=== PATIENT | male | born 1935 | race Hispanic/Latino ===

== ENCOUNTER 2018-01-04 22:39 | Emergency (ER) | payer MEDICARE ==
[~2018-01-04 22:39] MED LIST: ALIS150T PO; AMAN100C12 PO; Aspirin PO; CA C1TAB73 PO; CARB-38 PO; DOCU240C25 PO; DONE5TAB33 PO; FLUO40CA49 PO; FOLI0.8T21 PO; ISOS30TA PO; METO-391 PO; PANT40TA25 PO; PRAM0.5T12 PO; RISP0.5T50 PO; SIMV20TA6 PO
[2018-01-04 23:33] LABS: BASOPHILS % (AUTO) 0.6 % (0.0-5.0); EOSINOPHILS % (AUTO) 2.5 % (0.0-8.0); HEMATOCRIT 33.3 % (42-54); LYMPHOCYTES % (AUTO) 19.1 % (21.0-51.0); MEAN CORPUSCULAR HEMOGLOBIN 33.3 pg (27.0-33.0); MEAN CORPUSCULAR HGB CONC 33.8 g/dL (32.0-36.0); MEAN CORPUSCULAR VOLUME 98.5 fL (79-99); MONOCYTES % (AUTO) 10.5 % (3.0-13.0); NEUTROPHILS % (AUTO) 67.3 % (40.0-77.0); PLATELET COUNT (AUTO) 114 K/uL (130-400); RED BLOOD CELL COUNT(AUTO) 3.38 MIL/uL (4.50-6.20); RED CELL DISTRIBUTION WIDTH 13.9 % (11.0-15.5); WHITE BLOOD COUNT (AUTO) 5.6 K/uL (4.8-10.8)
[2018-01-04 23:40] LABS: CREATININE 1.4 mg/dL (0.5-1.5)
== END 2018-01-05 00:55 | disposition home or self-care (01) ==
LOC: EDH 22:39
DX: G20 Parkinson's disease (principal); I10 Essential (primary) hypertension; Z88.5 Allergy status to narcotic agent
CPT/HCPCS: 36415; 70450; 80048; 85025; 93005

== ENCOUNTER 2018-08-27 11:05 | Observation (INO) | payer MEDICARE ==
[~2018-08-27 11:05] MED LIST changes: -ALIS150T PO; -Aspirin PO; -CA C1TAB73 PO; -FOLI0.8T21 PO; -ISOS30TA PO; +LEVE250T2 PO; -PANT40TA25 PO; +TAMS0.4C32 PO
[2018-08-27 11:39] LABS: BASOPHILS % (AUTO) 0.4 % (0.0-5.0); EOSINOPHILS % (AUTO) 2.2 % (0.0-8.0); HEMATOCRIT 31.9 % (42-54); LYMPHOCYTES % (AUTO) 16.8 % (21.0-51.0); MEAN CORPUSCULAR HEMOGLOBIN 33.5 pg (27.0-33.0); MEAN CORPUSCULAR HGB CONC 34.4 g/dL (32.0-36.0); MEAN CORPUSCULAR VOLUME 97.4 fL (79-99); NEUTROPHILS % (AUTO) 68.6 % (40.0-77.0); NUCLEATED RED BLOOD CELLS 0.1 % (0.0-0.19); PLATELET COUNT (AUTO) 105 K/uL (130-400); RED BLOOD CELL COUNT(AUTO) 3.27 MIL/uL (4.50-6.20); RED CELL DISTRIBUTION WIDTH 13.9 % (11.0-15.5); WHITE BLOOD COUNT (AUTO) 3.9 K/uL (4.8-10.8)
[2018-08-27 11:51] LABS: CREATININE 1.2 mg/dL (0.5-1.5); POTASSIUM 3.6 mmol/L (3.5-5.1)
[2018-08-27 11:55] LABS: BILIRUBIN,TOTAL 0.4 mg/dL (0.2-1.0); MAGNESIUM 1.7 mg/dL (1.80-2.40); TOTAL PROTEIN, SERUM 6.2 g/dL (6.0-8.3)
[2018-08-27] MEDS ORDERED: MAGNESIUM OXIDE 400 MG TABLET PO ONE (13:25)
[2018-08-27 14:11] LABS: APPEARANCE,URINE Clear (CLEAR); BILIRUBIN,URINE Negative (NEGATIVE); COLOR,URINE Yellow (YELLOW); GLUCOSE, URINE (UA) Negative (NEGATIVE); KETONES,URINE Trace mg/dL (NEGATIVE); LEUKOCYTE ESTERASE ,URINE Negative (NEGATIVE); NITRATE,URINE Negative (NEGATIVE); OCCULT BLOOD,URINE Negative (NEGATIVE); PH,URINE 7.5 (5.0-8.0); PROTEIN,URINE Negative (NEGATIVE); UROBILINOGEN,URINE 0.2 mg/dL (0.2-1.0)
[2018-08-27 14:24] LABS: BACTERIA,URINE None Seen /HPF (None Seen); RBC,URINE 0-1 /HPF (0-1); WBC,URINE None Seen /HPF (0-1)
[2018-08-27 14:25] LABS: SQUAMOUS EPITHELIAL CELL,UR 0-2 /HPF (0-2)
[2018-08-27 15:45] VITALS: BP 174/78
[2018-08-27] MEDS ORDERED: DOCUSATE CALCIUM 240 MG CAP PO PRN (16:15)
--- NOTE | 2018-08-27 16:44 | NUR ---
lives with spouse and daughter Addendum: 08/27/18 at 1653 by MARIAELENA MIXON RN RN Amended: Links added.
[2018-08-27] MEDS ORDERED: LISINOPRIL 10 MG TABLET PO SCH (17:00)
[2018-08-27] MEDS ORDERED: CEPH500T PO (17:03)
[2018-08-27] MEDS ORDERED: METO25TA6 PO (17:03)
[2018-08-27] MEDS ORDERED: RISP1TAB71 PO (17:03)
[2018-08-27 19:16] VITALS: BP 142/74
[2018-08-27] MEDS: RISPERIDONE 0.5 MG TABLET PO SCH (20:35)
[2018-08-27] MEDS ORDERED: LEVETIRACETAM 250 MG TABLET PO SCH (21:00)
[2018-08-27] MEDS ORDERED: DONEPEZIL HCL 5 MG TAB PO SCH (21:00)
[2018-08-27] MEDS ORDERED: SIMVASTATIN 20 MG TABLET PO SCH (21:00)
[2018-08-27 23:35] VITALS: BP 141/70
[2018-08-28 03:56] LABS: HEMATOCRIT 29.2 % (42-54); MEAN CORPUSCULAR HEMOGLOBIN 33.4 pg (27.0-33.0); MEAN CORPUSCULAR HGB CONC 34.5 g/dL (32.0-36.0); MEAN CORPUSCULAR VOLUME 96.7 fL (79-99); PLATELET COUNT (AUTO) 111 K/uL (130-400); RED BLOOD CELL COUNT(AUTO) 3.02 MIL/uL (4.50-6.20); RED CELL DISTRIBUTION WIDTH 13.7 % (11.0-15.5); WHITE BLOOD COUNT (AUTO) 4.9 K/uL (4.8-10.8)
[2018-08-28 04:00] LABS: CREATININE 1.2 mg/dL (0.5-1.5); MAGNESIUM 1.6 mg/dL (1.80-2.40); POTASSIUM 3.5 mmol/L (3.5-5.1)
[2018-08-28 04:09] VITALS: BP 160/76
[2018-08-28 07:48] VITALS: BP 158/66
[2018-08-28] MEDS ORDERED: AMANTADINE HCL 100 MG CAPSULE PO SCH (08:00)
[2018-08-28] MEDS: RISPERIDONE 0.5 MG TABLET PO SCH ×2 (08:09→14:57)
[2018-08-28] MEDS ORDERED: TAMSULOSIN HCL 0.4 MG CAP.ER.24H PO SCH (09:00)
[2018-08-28] MEDS ORDERED: LISINOPRIL 10 MG TABLET PO SCH (09:00)
[2018-08-28] MEDS ORDERED: FLUOXETINE HCL 20 MG CAPSULE PO SCH (09:00)
[2018-08-28 11:48] VITALS: BP 160/79
[2018-08-28] MEDS ORDERED: PRAMIPEXOLE DI-HCL 0.25 MG TABLET PO SCH (12:00)
[2018-08-28] MEDS ORDERED: LISI-662 PO (13:11)
--- NOTE | 2018-08-28 14:55 | NUR ---
patient received flu vaccine earlier this year in May Addendum: 08/28/18 at 1456 by MARIAELENA MIXON RN RN Amended: Links added.
--- NOTE | 2018-08-28 15:43 | NUR ---
Patient discharged home with family members. Prescription for Lisinopril printed and given to family. Copy placed in chart. IV removed.
[2018-08-28] MEDS ORDERED: CARBIDOPA-LEVODOPA 25-100 TAB PO SCH (19:00)
[2018-08-29] MEDS ORDERED: LISINOPRIL 20 MG TABLET PO SCH (09:00)
== END 2018-08-28 15:50 | disposition home or self-care (01) ==
LOC: EDH 11:05 → EDHIP 13:43 → 2DH 15:28
PROVIDERS: ADMIT Internal Medicine Nephrology; ATTEND Internal Medicine Nephrology
DX: I49.8 Other specified cardiac arrhythmias (principal); G20 Parkinson's disease; I25.10 Atherosclerotic heart disease of native coronary artery without angina pectoris; I10 Essential (primary) hypertension; I95.9 Hypotension, unspecified; Z95.1 Presence of aortocoronary bypass graft
CPT/HCPCS: 36415 ×2; 70450; 80048; 80053; 81001; 82150; 82550; 83690; 83735 ×2; 84484; 85025; 85027; 93005; 99291; A4600; G0378 ×26

== ENCOUNTER 2018-08-30 22:52 | Emergency (ER) | payer MEDICARE ==
[~2018-08-30 22:52] MED LIST changes: +CEPH500T PO; +LISI-662 PO; -METO-391 PO; +RISP1TAB71 PO
[2018-08-31 00:08] LABS: BASOPHILS % (AUTO) 0.2 % (0.0-5.0); EOSINOPHILS % (AUTO) 1.3 % (0.0-8.0); LYMPHOCYTES % (AUTO) 12.2 % (21.0-51.0); MEAN CORPUSCULAR HEMOGLOBIN 33.6 pg (27.0-33.0); MEAN CORPUSCULAR HGB CONC 34.3 g/dL (32.0-36.0); MEAN CORPUSCULAR VOLUME 97.8 fL (79-99); MONOCYTES % (AUTO) 9.4 % (3.0-13.0); NEUTROPHILS % (AUTO) 76.9 % (40.0-77.0); PLATELET COUNT (AUTO) 121 K/uL (130-400); RED BLOOD CELL COUNT(AUTO) 3.27 MIL/uL (4.50-6.20); RED CELL DISTRIBUTION WIDTH 14.1 % (11.0-15.5); WHITE BLOOD COUNT (AUTO) 5.9 K/uL (4.8-10.8)
[2018-08-31 00:18] LABS: CREATININE 1.3 mg/dL (0.5-1.5); POTASSIUM 3.7 mmol/L (3.5-5.1)
[2018-08-31 00:20] LABS: INR 1.06 (0.85-1.15); PARTIAL THROMBOPLASTIN TIME 29.2 SEC (26.3-35.5); PROTHROMBIN TIME 11.1 SEC (9.6-11.6)
[2018-08-31 00:21] LABS: B-TYPE NATRIURETIC PEPTIDE 111 pg/mL (0-100)
[2018-08-31 00:22] LABS: ALBUMIN 3.1 g/dL (3.5-5.0); BILIRUBIN,TOTAL 0.3 mg/dL (0.2-1.0); TOTAL PROTEIN, SERUM 6.4 g/dL (6.0-8.3)
[2018-08-31 01:32] LABS: APPEARANCE,URINE Cloudy (CLEAR); BILIRUBIN,URINE Negative (NEGATIVE); COLOR,URINE Yellow (YELLOW); GLUCOSE, URINE (UA) Negative (NEGATIVE); KETONES,URINE Trace mg/dL (NEGATIVE); LEUKOCYTE ESTERASE ,URINE Negative (NEGATIVE); NITRATE,URINE Negative (NEGATIVE); OCCULT BLOOD,URINE Negative (NEGATIVE); PROTEIN,URINE POS 1+ (NEGATIVE)
[2018-08-31 01:41] LABS: AMPHET/METH SCREEN,URINE NEGATIVE (NEGATIVE); BARBITURATE SCREEN, URINE NEGATIVE (NEGATIVE); BENZODIAZEPINES SCREEN,URINE NEGATIVE (NEGATIVE); CANNABINOID SCREEN,URINE NEGATIVE (NEGATIVE); COCAINE SCREEN,URINE NEGATIVE (NEGATIVE); OPIATE SCREEN,URINE NEGATIVE (NEGATIVE); PHENCYCLIDINE SCREEN,URINE NEGATIVE (NEGATIVE)
[2018-08-31] MEDS ORDERED: LEVETIRACETAM 500 MG TABLET PO ONE (02:12)
[2018-08-31 02:21] LABS: BACTERIA,URINE Few /HPF (None Seen); CALCIUM OXALATE CRYSTALS,UR Moderate /LPF (None Seen); RBC,URINE 0-1 /HPF (0-1); WBC,URINE 0-1 /HPF (0-1)
== END 2018-08-31 03:40 | disposition home or self-care (01) ==
LOC: EDH 22:52
DX: G40.802 Other epilepsy, not intractable, without status epilepticus (principal); E78.5 Hyperlipidemia, unspecified; I10 Essential (primary) hypertension; I25.810 Atherosclerosis of coronary artery bypass graft(s) without angina pectoris; Z88.6 Allergy status to analgesic agent; Z95.1 Presence of aortocoronary bypass graft; Z98.890 Other specified postprocedural states
CPT/HCPCS: 36415; 70450; 71045; 80053; 80305; 81001; 82550; 83880; 84484; 85025; 85610; 85730; 93005

== ENCOUNTER 2019-01-20 16:46 | Observation (INO) | payer MEDICARE ==
[~2019-01-20] VITALS: Ht 162.6 cm; Wt 62.1 kg
[2019-01-20 17:17] LABS: BASOPHILS % (AUTO) 0.4 % (0.0-5.0); EOSINOPHILS % (AUTO) 2.4 % (0.0-8.0); LYMPHOCYTES % (AUTO) 14.4 % (21.0-51.0); MEAN CORPUSCULAR HEMOGLOBIN 32.9 pg (27.0-33.0); MEAN CORPUSCULAR HGB CONC 33.1 g/dL (32.0-36.0); MEAN CORPUSCULAR VOLUME 99.4 fL (79-99); MONOCYTES % (AUTO) 9.9 % (3.0-13.0); NEUTROPHILS % (AUTO) 72.9 % (40.0-77.0); PLATELET COUNT (AUTO) 129 K/uL (130-400); RED BLOOD CELL COUNT(AUTO) 3.22 MIL/uL (4.50-6.20); RED CELL DISTRIBUTION WIDTH 13.6 % (11.0-15.5); WHITE BLOOD COUNT (AUTO) 6.8 K/uL (4.8-10.8)
[2019-01-20 17:24] LABS: INR 1.12 (0.85-1.15); PARTIAL THROMBOPLASTIN TIME 31.9 SEC (26.3-35.5); PROTHROMBIN TIME 11.7 SEC (9.6-11.6)
[2019-01-20 17:26] LABS: CREATININE 1.5 mg/dL (0.5-1.5); POTASSIUM 4.1 mmol/L (3.5-5.1)
[2019-01-20 17:31] LABS: ALBUMIN 3.2 g/dL (3.5-5.0); BILIRUBIN,TOTAL 0.3 mg/dL (0.2-1.0); TOTAL PROTEIN, SERUM 6.4 g/dL (6.0-8.3)
[2019-01-20 18:25] LABS: APPEARANCE,URINE Clear (CLEAR); BILIRUBIN,URINE Negative (NEGATIVE); COLOR,URINE Yellow (YELLOW); GLUCOSE, URINE (UA) Negative (NEGATIVE); KETONES,URINE Negative (NEGATIVE); LEUKOCYTE ESTERASE ,URINE Negative (NEGATIVE); NITRATE,URINE Negative (NEGATIVE); OCCULT BLOOD,URINE Negative (NEGATIVE); PROTEIN,URINE Negative (NEGATIVE); UROBILINOGEN,URINE 0.2 mg/dL (0.2-1.0)
[2019-01-20 20:50] VITALS: BP 162/72
[2019-01-20] MEDS ORDERED: ROTI1PAT10 TD (23:13)
[2019-01-20] MEDS ORDERED: CARB-38 PO (23:13)
[2019-01-20] MEDS ORDERED: TAMS-1 PO (23:13)
[2019-01-20] MEDS ORDERED: LISI-617 PO (23:13)
[2019-01-20] MEDS ORDERED: LEVE250T2 PO (23:13)
[2019-01-20] MEDS ORDERED: OLAN5TAB27 PO (23:13)
[2019-01-21] MEDS ORDERED: SODIUM CHLORIDE 0.9% 1000ML 1,000 ML IV SCH
[2019-01-21 00:30] VITALS: BP 151/75
[2019-01-21 01:43] LABS: HEMATOCRIT 29.2 % (42-54); MEAN CORPUSCULAR HEMOGLOBIN 34.2 pg (27.0-33.0); MEAN CORPUSCULAR HGB CONC 34.1 g/dL (32.0-36.0); MEAN CORPUSCULAR VOLUME 100.2 fL (79-99); NUCLEATED RED BLOOD CELLS 0.1 % (0.0-0.19); PLATELET COUNT (AUTO) 114 K/uL (130-400); RED BLOOD CELL COUNT(AUTO) 2.92 MIL/uL (4.50-6.20); RED CELL DISTRIBUTION WIDTH 13.9 % (11.0-15.5); WHITE BLOOD COUNT (AUTO) 5.6 K/uL (4.8-10.8)
[2019-01-21 02:22] LABS: CARBON DIOXIDE 30 mmol/L (21-32); CHLORIDE 106 mmol/L (101-111); CREATINE KINASE, TOTAL 42 U/L (21-232); CREATININE 1.4 mg/dL (0.5-1.5); GLOMERULAR FILTR. RATE CALC 51 mL/min (>60); GLUCOSE,RANDOM 99 mg/dL (70-105); MYOGLOBIN 61 ng/mL (10-92); POTASSIUM 3.8 mmol/L (3.5-5.1); SODIUM SERUM 141 mmol/L (136-145); TROPONIN I < 0.04 ng/mL (0.00-0.06); UREA NITROGEN, BLOOD 27 mg/dL (7-18)
[2019-01-21] MEDS ORDERED: SODIUM CHLORIDE 0.9% 1000ML 1,000 ML IV ONE (04:01)
[2019-01-21 04:20] VITALS: BP 186/82
[2019-01-21 05:35] VITALS: BP 147/85
[2019-01-21 07:30] VITALS: BP 178/75
[2019-01-21] MEDS ORDERED: FLUOXETINE HCL 10 MG CAPSULE PO SCH (09:00)
[2019-01-21] MEDS ORDERED: AMANTADINE HCL 100 MG CAPSULE PO SCH (09:00)
[2019-01-21] MEDS ORDERED: LEVETIRACETAM 250 MG TABLET PO SCH (09:00)
[2019-01-21] MEDS ORDERED: LISINOPRIL 5 MG TABLET PO SCH (09:00)
[2019-01-21] MEDS ORDERED: PRAMIPEXOLE DI-HCL 0.25 MG TABLET PO SCH (09:00)
[2019-01-21] MEDS ORDERED: LEVODOPA PO SCH ×3 (09:15→19:00)
[2019-01-21] MEDS ORDERED: CARBIDOPA PO SCH ×3 (09:15→19:00)
[2019-01-21 09:56] LABS: CREATINE KINASE, TOTAL 44 U/L (21-232); MYOGLOBIN 58 ng/mL (10-92); TROPONIN I < 0.04 ng/mL (0.00-0.06)
[2019-01-21 11:00] VITALS: BP 136/66
--- NOTE | 2019-01-21 15:04 | NUR ---
DISCHARGE INSTRUCTION PROVIDED TO PATIENT AND DAUGHTER. INSTRUCTED ON IMPORTANCE TO CONT TO CHECK BLOOD PRESSURE BEFORE MEDICATIONS AND KEEP BP LOG AND TAKE TO DOCTOR . ALSO LET THEM KNOW ON IMPORTANCE FOR PT NOT TO SIRT FOR LONG PERIODS OF TIME IN ONE POSITION FOR RISK OF SKIN BREAKDOWN . SHOWED DAUGHTER THE PINK AREA AND SCARRING IN BETWEEN FOLDS .PER DAUGHTER KNOWS ABOUT IT AND STATED WILL PLACE A CREAM SGE HAS AND IS CURRENTLY TAKING CARE OF IT . REENFORCED PREVENTION FOR SORE IS KEEP LOAD OFF PRESSURE . DAUGHTER VERBILIZED UNDERSTANDING
[2019-01-21] MEDS ORDERED: SIMVASTATIN 20 MG TABLET PO SCH (21:00)
[2019-01-21] MEDS ORDERED: DONEPEZIL HCL 5 MG TAB PO SCH (21:00)
[2019-01-21] MEDS ORDERED: TAMSULOSIN HCL 0.4 MG CAP.ER.24H PO SCH (21:00)
[2019-01-22 19:30] VITALS: BP 117/68
== END 2019-01-21 15:05 | disposition home or self-care (01) ==
LOC: EDH 16:46 → EDHIP 19:19 → 3DH 20:33
PROVIDERS: ADMIT Internal Medicine Nephrology; ATTEND Internal Medicine Nephrology
DX: I95.9 Hypotension, unspecified (principal); E86.9 Volume depletion, unspecified; I10 Essential (primary) hypertension; I25.10 Atherosclerotic heart disease of native coronary artery without angina pectoris; G20 Parkinson's disease; F02.80 Dementia in other diseases classified elsewhere, unspecified severity, without behavioral disturbance, psychotic disturbance, mood disturbance, and anxiety; Z95.1 Presence of aortocoronary bypass graft; E78.5 Hyperlipidemia, unspecified; Z85.46 Personal history of malignant neoplasm of prostate; Z79.899 Other long term (current) drug therapy; Z79.01 Long term (current) use of anticoagulants
CPT/HCPCS: 36415 ×2; 70450; 71045; 80048; 80053; 81003; 82550 ×2; 83874 ×2; 84484 ×3; 85025; 85027; 85610; 85730; 93005; 96360; 96361; 99284; G0378 ×20; J7030

== ENCOUNTER 2019-04-08 14:00 | Emergency (ER) | payer MEDICARE ==
[~2019-04-08 14:00] MED LIST changes: -CEPH500T PO; +LISI-617 PO; -LISI-662 PO; +OLAN5TAB27 PO; -PRAM0.5T12 PO; -RISP1TAB71 PO; +ROTI1PAT10 TD; +TAMS-1 PO; -TAMS0.4C32 PO
[2019-04-08] MEDS ORDERED: SODIUM CHLORIDE 0.9% 500ML 500 ML IV ONE ×2 (14:50→16:37)
[2019-04-08 15:02] LABS: BASOPHILS % (AUTO) 0.4 % (0.0-5.0); EOSINOPHILS % (AUTO) 3.8 % (0.0-8.0); HEMATOCRIT 28.3 % (42-54); LYMPHOCYTES % (AUTO) 18.3 % (21.0-51.0); MEAN CORPUSCULAR HEMOGLOBIN 34.5 pg (27.0-33.0); MEAN CORPUSCULAR HGB CONC 34.4 g/dL (32.0-36.0); MEAN CORPUSCULAR VOLUME 100.2 fL (79-99); MONOCYTES % (AUTO) 12.5 % (3.0-13.0); PLATELET COUNT (AUTO) 119 K/uL (130-400); RED BLOOD CELL COUNT(AUTO) 2.82 MIL/uL (4.50-6.20); RED CELL DISTRIBUTION WIDTH 14.7 % (11.0-15.5)
[2019-04-08 15:29] LABS: ALBUMIN 3.5 g/dL (3.5-5.0); BILIRUBIN,TOTAL 0.3 mg/dL (0.2-1.0); CREATININE 1.6 mg/dL (0.5-1.5); POTASSIUM 4.9 mmol/L (3.5-5.1); TOTAL PROTEIN, SERUM 6.8 g/dL (6.0-8.3)
[2019-04-08 17:12] LABS: APPEARANCE,URINE CLEAR (CLEAR); BILIRUBIN,URINE NEGATIVE (NEGATIVE); COLOR,URINE YELLOW (YELLOW); GLUCOSE, URINE (UA) NEGATIVE (NEGATIVE); KETONES,URINE NEGATIVE (NEGATIVE); LEUKOCYTE ESTERASE ,URINE NEGATIVE (NEGATIVE); NITRATE,URINE NEGATIVE (NEGATIVE); OCCULT BLOOD,URINE NEGATIVE (NEGATIVE); PROTEIN,URINE NEGATIVE (NEGATIVE); UROBILINOGEN,URINE 0.2 mg/dL (0.2-1.0)
[2019-04-08] MEDS ORDERED: HYDRALAZINE HCL 20 MG/ML VIAL ONE (18:36)
== END 2019-04-08 18:43 | disposition home or self-care (01) ==
LOC: EDH 14:00
DX: E86.0 Dehydration (principal); G20 Parkinson's disease; I10 Essential (primary) hypertension; I25.10 Atherosclerotic heart disease of native coronary artery without angina pectoris; F03.90 Unspecified dementia, unspecified severity, without behavioral disturbance, psychotic disturbance, mood disturbance, and anxiety; E78.5 Hyperlipidemia, unspecified; Z85.46 Personal history of malignant neoplasm of prostate; Z88.5 Allergy status to narcotic agent; Z88.2 Allergy status to sulfonamides
CPT/HCPCS: 36415; 70450; 71045; 80053; 81003; 84484; 85025; 93005; 99285; J0360; J7040 ×2